=== PATIENT | female | born 1965 | race Caucasian/White ===

== ENCOUNTER → 2023-09-11 17:28 | Outpatient (REF) | payer BC, SELFPAY | LOC: WDC 17:28 | PROVIDERS: ATTENDING PHYSICIAN Nurse Practitioner Family | DX: Z12.31 Encounter for screening mammogram for malignant neoplasm of breast (principal) | CPT/HCPCS: 77063; 77067 ==

== ENCOUNTER → 2024-02-16 15:53 | Outpatient (REF) | payer BC, SELFPAY | LOC: RAD 15:53 | PROVIDERS: ATTENDING PHYSICIAN Nurse Practitioner Family | DX: M54.41 Lumbago with sciatica, right side (principal) | CPT/HCPCS: 72110 ==

== ENCOUNTER → 2024-06-11 09:06 | Outpatient (REF) | payer BC, SELFPAY | LOC: RAD 09:06 | PROVIDERS: ATTENDING PHYSICIAN Nurse Practitioner Family | DX: M25.511 Pain in right shoulder (principal) | CPT/HCPCS: 73030 ==

== ENCOUNTER 2024-07-08 20:56 | Emergency (ER) | payer BC, SELFPAY ==
[2024-07-08 20:58] VITALS: BP 172/116
[2024-07-08 21:16] LABS: % Basophils 0.6 % (0-2); % Eosinophils 1.7 % (0-6); % Immature Granulocytes 0.3 % (0-0.5); % Lymphocytes 39.5 % (20.5-51.1); % Neutrophils 49.9 % (42.2-75.2); Absolute Eosinophils 0.1 10^3/uL (0-0.7); Absolute Lymphocytes 2.9 10^3/uL (1.2-3.4); Absolute Monocytes 0.6 10^3/uL (0.1-0.6); Absolute Neutrophils 3.6 10^3/uL (1.4-6.5); Hematocrit 39.6 % (37.0-47.0); Mean Corp Hgb Conc. 32.8 g/dL (33.0-37.0); Mean Corpuscular Volume 94.3 fL (81.0-99.0); Nucleated Red Blood Cells % 0 %; Platelet Count 324 10^3/uL (130-400); Red Cell Dist. Width 12.7 % (11.5-14.5); White Blood Cell Count 7.2 10^3/uL (4.8-10.8)
[2024-07-08 21:16] LABS: Urine Albumin 1+ (Neg - Trace); Urine Bilirubin Negative (Negative); Urine Character Clear (Clear); Urine Color Yellow; Urine Glucose Negative (Negative); Urine Ketone Negative (Negative); Urine Leukocyte Negative (Negative); Urine Nitrite Negative (Negative); Urine Occult Blood 4+ (Negative); Urine Urobilinogen Negative (Neg - 1+)
[2024-07-08 21:34] LABS: ALT (SGPT) 27 U/L (0-35); AST (SGOT) 29 U/L (14-36); Albumin 5.3 g/dl (3.5-5.0); Alkaline Phosphatase 104 U/L (38-126); Blood Urea Nitrogen 24 mg/dl (7-17); Calcium 9.7 mg/dl (8.4-10.2); Carbon Dioxide 28 mmol/L (22-30); Chloride 99 mmol/L (98-107); Glucose 108 mg/dl (70-99); Potassium 4.3 mmol/L (3.5-5.1); Sodium 136 mmol/L (135-145); Total Bilirubin 0.8 mg/dl (0.2-1.3); eGFR 57.52
[2024-07-08 21:43] LABS: Urine Bacteria Few (Negative); Urine Red Blood Cell 50-60 /HPF (0-2); Urine Squamous Cell 21-25 /LPF (Few); Urine White Cell 0-2 /HPF (0-5)
[2024-07-08 23:09] VITALS: BP 173/114
[2024-07-08] MEDS: NSS 1000 IV (23:40)
[2024-07-08] MEDS: TORADOL 15 MG IV (23:40)
[2024-07-08 23:44] VITALS: BMI 22.5
--- NOTE | 2024-07-09 00:16 | ED.GENMED ---
History of Present Illness
General
Chief Complaint: Flank Pain
Time Seen by Provider: 07/08/24 23:21
History of Present Illness
History of Present Illness:
58-year-old female presents to the emergency department for evaluation of right flank pain and abdominal cramping that began earlier this evening. Reports nausea but no vomiting. Past history of kidney stones and symptoms feel similar. No fevers
or chills. Has never needed a procedure for kidney stone
Past History
Past History
ED Past Medical History: Other (Kidney stones, positive a in a,)
ED Past Surgical History: Appendectomy and Other (perforated intestine from trauma with a hernia with mesh)
Social History
Tobacco: Non-smoker
Alcohol: None
Personal:
Living: with family
Employment: Employed
Family History
Family History: Negative Diabetes, Hypertension or CAD
Review of Systems
Review of Systems
Allergies reviewed?: Yes
All Other Systems: ROS reviewed and negative except as documented in HPI and ROS
Phy Exam
Physical Exam
Physical Exam:
GEN: Well appearing, NAD, WDWN
HEENT: Oral mucosa moist, no scleral icterus
Cardiac: Regular rate
Lung: No respiratory distress, no tachypnea
MSK: No gross deformity or injuries
Skin: Good color, no pallor or jaundice, no rashes
Neuro: AO x3, moves all extremities freely
Psych: Calm, cooperative
Course
Orders/Labs/Results
Orders:
Orders
07/08/24 21:07
Urinalysis Reflex To Culture Urgent
Date Specimen was Collected: 07/08/24
Time Specimen was Collected: 21:00
Urine Microscopic Reflex Cult Urgent
07/08/24 21:09
Complete Blood Count/With Diff Urgent
Comprehensive Metabolic Panel Urgent
07/08/24 21:53
CT Abd/pelvis Wo Iv Cont Urgent
Comment:
Reason For Exam: flank pain
07/08/24 23:23
0.9% Sodium Chloride 1000 ml [Nss] 1,000 ml IV BOLUS
Ketorolac [Toradol] 15 mg IV NOW STA
07/09/24 00:19
Ketorolac [Toradol] 15 mg IV NOW STA
Abnormal Lab Results
07/08/24 07/08/24
21:07 21:09
MCHC 32.8 L g/dL
(33.0-37.0)
BUN 24 H mg/dl
(7-17)
Creatinine 1.1 H mg/dL
(0.6-1.0)
Glucose 108 H mg/dl
(70-99)
Albumin 5.3 H g/dl
(3.5-5.0)
Ur Occult Blood Reflex 4+ A
(Negative)
Urine RBC 50-60 A /HPF
(0-2)
Urine Bacteria (Reflex) Few A
(Negative)
Urine Albumin (Reflex) 1+ A
(Neg - Trace)
07/08/24 21:09
07/08/24 21:09
Vital Signs
Initial and Last Documented VS:
Initial Vital Signs
Temp Pulse Resp BP Pulse Ox
98.5 F 96 18 172/116 97
07/08/24 20:58 07/08/24 20:58 07/08/24 20:58 07/08/24 20:58 07/08/24 20:58
Last Documented Vital Signs
Temp Pulse Resp BP Pulse Ox
98.5 F 85 18 143/91 98
07/08/24 20:58 07/09/24 00:34 07/09/24 00:34 07/09/24 00:34 07/09/24 00:34
MDM/Problems Addressed
MDM/Problems Addressed:
Patient found to have a 4 mm right UVJ stone. Pain improved with treatment in the emergency department, no indication for antibiotics or urgent procedure. Discussed supportive care and expectant management
*Critical Care Note
Total Time (30-74mins, 75-104mins- exclusive of procedures): Not Applicable
ED Attending Note
-
Portions of this chart may have been created with voice recognition software.� Occasional wrong word or��sound alike� substitutions may have occurred due to the inherent limitations of voice recognition software.
Discharge Plan
Departure
Patient Disposition: Home (Routine Discharge)
Date of Disposition: 07/09/24
Time of Disposition: 00:17
Patient with high blood pressure during this ER visit?: No
Discharge Problem:
Ureterolithiasis
Instructions: Kidney Stones (DC)
Prescriptions:
New
ketorolac 10 mg tablet
10 mg PO Q8H PRN (Reason: Pain) Qty: 12 0RF
Rx Instructions:
maximum total duration of 5 days from all oral, intranasal, or parenteral formulations
tamsulosin [Flomax] 0.4 mg capsule
0.4 mg PO HS Qty: 10 0RF
oxycodone 5 mg tablet
5 mg PO Q8H PRN (Reason: Pain) Qty: 8 0RF
No Action
sertraline 100 MG tablet
100 mg PO DAILY
mometasone [Nasonex] 17 GRAM spray,non-aerosol
0 spray intranasal PRN PRN (Reason: sinus congestion)
oxycodone-acetaminophen 5 MG/325 MG tablet
1 - 2 tab PO Q4HPRN PRN (Reason: pain) Qty: 30 0RF
tamsulosin 0.4 MG capsule
0.4 mg PO DAILY Qty: 21 0RF
oxycodone-acetaminophen 5 MG/325 MG tablet
1 tab PO Q4HPRN PRN (Reason: pain) Qty: 20 0RF
diazepam 2 MG tablet
2 mg PO TIDPRN PRN (Reason: Muscle spasm) Qty: 12 0RF
tamsulosin 0.4 MG capsule
0.4 mg PO DAILY Qty: 7 0RF
diclofenac sodium 75 MG tablet,delayed release (DR/EC)
75 mg PO BID Qty: 14 0RF
Referrals:
Daisy Moctezuma CRNP [Family Provider] -
Interventions
Interventions:
*Risk Screen - Suicide Last Done: 07/08/24 20:58
*General Assessment Last Done: 07/08/24 20:58
*Neglect/Abuse Screening Last Done: 07/08/24 20:58
*ED COVID-19 Vaccine History Last Done: 07/08/24 20:58
*Nursing Disposition Last Done: 07/09/24 00:51
RG-Fygevt-Lchorofjow Assessment Last Done: 07/08/24 23:45
ED-Female Genitourinary Assessment Last Done: 07/08/24 23:45
Discharge Date and Time
Discharge Date/Time: 07/09/24 00:57
Print Language: INDONESIAN
[2024-07-09 00:34] VITALS: BP 143/91
[2024-07-09] MEDS: TORADOL 15 MG IV (00:35)
== END 2024-07-09 00:57 | disposition home or self-care (01) ==
LOC: EMR 20:56
PROVIDERS: Student in an Organized Health Care Education/Training Program; EMERGENCY PHYSICIAN Student in an Organized Health Care Education/Training Program; FAMILY PHYSICIAN Nurse Practitioner Family
DX: N20.1 Calculus of ureter (principal); Z87.442 Personal history of urinary calculi; Z90.49 Acquired absence of other specified parts of digestive tract
CPT/HCPCS: 99284; 96374; 96375; 74176; 80053; 81003; 81015; 85025

== ENCOUNTER → 2024-09-13 17:14 | Outpatient (REF) | payer BC, SELFPAY | LOC: WDC 17:14 | PROVIDERS: ATTENDING PHYSICIAN Nurse Practitioner Family | DX: Z12.31 Encounter for screening mammogram for malignant neoplasm of breast (principal) | CPT/HCPCS: 77063; 77067 ==